=== PATIENT | female | born 1945 | race Caucasian/White ===

== ENCOUNTER 2016-07-08 16:41 | Emergency (ER) | payer MEDICARE, OTHER ==
[~2016-07-08] VITALS: Ht 165.1 cm; Wt 90.7 kg
[~2016-07-08 16:41] MED LIST: ACYC5CRE3 TOP; ALBUAER3 IN; AMITR PO; ASPI81CH43 PO; BIOT10004 PO; CETI1TAB36 PO; DULO60CA PO; GLYB1.257 PO; IBUP400T21 PO; INSUINJ49 SC; MAGN500T11 PO; METF-312 PO; MISCTAB85 PO; MULTCAP45 PO; NOR10T PO; OMEG100078 PO; OMEP20CA5 PO; RAMI5CAP40 PO; ROSU5TAB5 PO
[2016-07-08 17:45] LABS: Basophils # (auto) 0 uL; Basophils % (auto) 0.6 % (0.0-2.0); Eosinophils # (auto) 0.1 uL; Eosinophils % (auto) 1.8 % (0.0-7.0); Hematocrit 35.9 % (36.0-46.0); Hemoglobin 11.7 g/dL (12.2-16.2); Lymphocytes # (auto) 2.4 uL; Mean Corpuscular Hemoglobin 28.6 pg (28.0-32.0); Mean Corpuscular Hgb Conc. 32.6 g/dL (32.0-36.0); Mean Corpuscular Volume 87.7 fL (80.0-100.0); Mean Platelet Volume 7.4 fL (7.4-10.4); Monocytes # (auto) 0.6 uL; Monocytes % (auto) 7.6 % (0.0-12.0); Neutrophils # (auto) 4.8 uL; Platelet Count (auto) 330 10^3/uL (140-450); Red Cell Distribution Width 15.4 % (11.6-16.0)
[2016-07-08 17:54] LABS: Albumin 3.4 g/dL (3.4-5.0); Anion Gap 11 (5-15); Aspartate Aminotransferase 16 U/L (15-37); BUN/Creatinine Ratio 15.5; Blood Urea Nitrogen 13 mg/dL (7-18); Calcium 8.6 mg/dL (8.5-10.1); Carbon Dioxide 24 mmol/L (21-32); Chloride 108 mmol/L (98-107); GFR African American 86 mL/min; GFR Non-African American 71 mL/min; Glucose 121 mg/dL (74-106); Magnesium 1.8 mg/dL (1.6-2.6); Potassium 4.2 mmol/L (3.5-5.1); Sodium 143 mmol/L (136-145)
[2016-07-08 17:59] LABS: Alkaline Phosphatase 57 U/L (45-117); Bilirubin, Total 0.2 mg/dL (0.2-1.0); Total Protein 7.3 g/dL (6.4-8.2)
[2016-07-08 18:03] LABS: B-Type Natriuretic Peptide 49.78 pg/mL (0-100)
[2016-07-08 18:11] LABS: Temperature: 22.5 C (20.0-25.0)
[2016-07-08 20:15] LABS: INR 0.99 (0.9-1.15); Partial Thromboplastin Time 25.6 sec (22.64-33.71); Prothrombin Time 10.2 sec (9.37-12.3)
[2016-07-08 20:44] LABS: Urine Bilirubin Negative (Negative); Urine Blood Negative /uL (Negative); Urine Color Yellow (Yellow); Urine Glucose Normal (Normal); Urine Ketone Negative (Negative); Urine Nitrite Negative (Negative); Urine RBC 2 /hpf (0 - 4); Urine Squamous Epithelial Cell FEW /hpf (<5); Urine Urobilinogen Normal (Negative); Urine pH 5.5 (5.0-8.0)
[2016-07-08] MEDS ORDERED: HYDROcodone-ACET 5/325MG TAB PO ONE (21:15)
[2016-07-08 22:51] VITALS: BP 134/70
== END 2016-07-08 22:37 | disposition home or self-care (01) ==
LOC: ER 16:44
DX: R60.9 Edema, unspecified (principal); N39.0 Urinary tract infection, site not specified; E11.9 Type 2 diabetes mellitus without complications; E78.5 Hyperlipidemia, unspecified; I10 Essential (primary) hypertension; J45.909 Unspecified asthma, uncomplicated; Z98.51 Tubal ligation status; Z88.0 Allergy status to penicillin; Z86.73 Personal history of transient ischemic attack (TIA), and cerebral infarction without residual deficits; Z90.49 Acquired absence of other specified parts of digestive tract; Z90.710 Acquired absence of both cervix and uterus; Z79.4 Long term (current) use of insulin
CPT/HCPCS: 36415; 71020; 73630; 80053; 81001; 83735; 83880; 84484; 85025; 85379; 85610; 85730; 93005; 94761

== ENCOUNTER 2016-07-14 14:47 | Observation (INO) | payer OTHER ==
[~2016-07-14] VITALS: Ht 165.1 cm; Wt 92.1 kg
[2016-07-14 16:03] LABS: Basophils # (auto) 0 uL; Basophils % (auto) 0.4 % (0.0-2.0); Eosinophils # (auto) 0.1 uL; Eosinophils % (auto) 1.6 % (0.0-7.0); Hematocrit 37.1 % (36.0-46.0); Hemoglobin 12.3 g/dL (12.2-16.2); Lymphocytes # (auto) 2.1 uL; Lymphocytes % (auto) 25.1 % (10.0-50.0); Mean Corpuscular Hemoglobin 28.9 pg (28.0-32.0); Mean Corpuscular Hgb Conc. 33.2 g/dL (32.0-36.0); Mean Corpuscular Volume 86.8 fL (80.0-100.0); Mean Platelet Volume 7.2 fL (7.4-10.4); Monocytes # (auto) 0.6 uL; Monocytes % (auto) 7.8 % (0.0-12.0); Neutrophils # (auto) 5.4 uL; Neutrophils % (auto) 65.1 % (37.0-80.0); Platelet Count (auto) 327 10^3/uL (140-450); Red Cell Distribution Width 14.9 % (11.6-16.0); White Blood Cell 8.2 10^3/uL (4.4-10.8)
[2016-07-14 16:26] LABS: Albumin 3.6 g/dL (3.4-5.0); Anion Gap 13 (5-15); Aspartate Aminotransferase 21 U/L (15-37); Calcium 8.6 mg/dL (8.5-10.1); Carbon Dioxide 21 mmol/L (21-32); Chloride 104 mmol/L (98-107); GFR African American 69 mL/min; GFR Non-African American 57 mL/min; Glucose 177 mg/dL (74-106); Magnesium 1.4 mg/dL (1.6-2.6); Potassium 4.2 mmol/L (3.5-5.1); Sodium 138 mmol/L (136-145)
[2016-07-14 16:31] LABS: Alkaline Phosphatase 58 U/L (45-117); BUN/Creatinine Ratio 17.8; Bilirubin, Total 0.3 mg/dL (0.2-1.0); Blood Urea Nitrogen 18 mg/dL (7-18); Total Protein 7.4 g/dL (6.4-8.2)
[2016-07-15 03:31] VITALS: BP 147/76
== END 2016-07-15 03:38 | disposition home or self-care (01) | DRG 310 ==
LOC: ER 14:48 → OVERFLOW 23:55 → ER 07-15 03:38
PROVIDERS: ADMIT Emergency Medicine; ATTEND Emergency Medicine
DX: R00.2 Palpitations (principal); M25.472 Effusion, left ankle; M25.471 Effusion, right ankle; L29.9 Pruritus, unspecified; J45.909 Unspecified asthma, uncomplicated; E11.9 Type 2 diabetes mellitus without complications; E78.5 Hyperlipidemia, unspecified; Z86.73 Personal history of transient ischemic attack (TIA), and cerebral infarction without residual deficits; Z88.0 Allergy status to penicillin; Z79.4 Long term (current) use of insulin; Z79.899 Other long term (current) drug therapy; R60.9 Edema, unspecified; F41.9 Anxiety disorder, unspecified; I10 Essential (primary) hypertension
CPT/HCPCS: 36415; 71020; 80053; 83735; 84484; 85025; 93005; 99285; G0378

== ENCOUNTER 2017-01-18 15:31 | Emergency (ER) | payer OTHER ==
[~2017-01-18] VITALS: Ht 165.1 cm; Wt 100.2 kg
[~2017-01-18 15:31] MED LIST changes: -METF-312 PO; +METF-370 PO; -OMEP20CA5 PO; +OMEP20CA74 PO
[2017-01-18 15:37] VITALS: BP 139/61
[2017-01-18] MEDS ORDERED: KETOROLAC TROMETH 60MG/2ML VIAL IM ONE (16:30)
== END 2017-01-18 16:56 | disposition home or self-care (01) ==
LOC: ER 15:34
DX: M54.31 Sciatica, right side (principal); E11.9 Type 2 diabetes mellitus without complications; Z88.0 Allergy status to penicillin; Z79.899 Other long term (current) drug therapy
CPT/HCPCS: 96372; 99283; J1885

== ENCOUNTER 2017-02-12 16:14 | Emergency (ER) | payer OTHER ==
[~2017-02-12] VITALS: Ht 165.1 cm; Wt 98.9 kg
[2017-02-12 17:02] VITALS: BP 144/66
== END 2017-02-12 18:09 | disposition home or self-care (01) ==
LOC: ER 16:18
DX: S20.212A Contusion of left front wall of thorax, initial encounter (principal); J45.909 Unspecified asthma, uncomplicated; E11.9 Type 2 diabetes mellitus without complications; E78.5 Hyperlipidemia, unspecified; I10 Essential (primary) hypertension; Z87.442 Personal history of urinary calculi; Z98.51 Tubal ligation status; Z90.710 Acquired absence of both cervix and uterus; Z90.89 Acquired absence of other organs; Z79.899 Other long term (current) drug therapy; Z79.4 Long term (current) use of insulin; Z88.0 Allergy status to penicillin; W01.0XXA Fall on same level from slipping, tripping and stumbling without subsequent striking against object, initial encounter; Y93.89 Activity, other specified; Y99.8 Other external cause status; Y92.481 Parking lot as the place of occurrence of the external cause
CPT/HCPCS: 71101

== ENCOUNTER 2017-03-18 17:49 | Emergency (ER) | payer OTHER ==
[2017-03-18 17:57] VITALS: BP 145/73
[2017-03-18 18:27] LABS: Basophils # (auto) 0.1 uL; Basophils % (auto) 0.7 % (0.0-2.0); Eosinophils # (auto) 0.1 uL; Eosinophils % (auto) 1.2 % (0.0-7.0); Hematocrit 34.8 % (36.0-46.0); Hemoglobin 11.6 g/dL (12.2-16.2); Lymphocytes # (auto) 2.3 uL; Lymphocytes % (auto) 26.3 % (10.0-50.0); Mean Corpuscular Hgb Conc. 33.3 g/dL (32.0-36.0); Monocytes # (auto) 0.7 uL; Monocytes % (auto) 7.5 % (0.0-12.0); Neutrophils # (auto) 5.7 uL; Neutrophils % (auto) 64.3 % (37.0-80.0); Nucleated Red Blood Cells % 0.1 %; Platelet Count (auto) 328 10^3/uL (140-450); Red Cell Distribution Width 16.9 % (11.8-14.3); White Blood Cell 8.8 10^3/uL (4.4-10.8)
[2017-03-18 18:45] LABS: Alanine Aminotransferase 19 U/L (13-56); Albumin 3.3 g/dL (3.4-5.0); Alkaline Phosphatase 72 U/L (45-117); Anion Gap 9 (5-15); Aspartate Aminotransferase 15 U/L (15-37); BUN/Creatinine Ratio 13.2; Bilirubin, Total 0.4 mg/dL (0.2-1.0); Blood Urea Nitrogen 14 mg/dL (7-18); Calcium 8.7 mg/dL (8.5-10.1); Carbon Dioxide 25 mmol/L (21-32); Chloride 105 mmol/L (98-107); GFR African American 66 mL/min; GFR Non-African American 54 mL/min; Glucose 213 mg/dL (74-106); Potassium 3.9 mmol/L (3.5-5.1); Sodium 139 mmol/L (136-145); Total Protein 7.6 g/dL (6.4-8.2)
== END 2017-03-18 20:22 | disposition left against medical advice (07) ==
LOC: ER 17:51
DX: R07.89 Other chest pain (principal); R05 Cough; Z53.21 Procedure and treatment not carried out due to patient leaving prior to being seen by health care provider
CPT/HCPCS: 36415; 71020; 80053; 84484; 85025; 93005